=== PATIENT | male | born 1990 | race Caucasian/White ===

== ENCOUNTER 2021-05-16 09:14 | Emergency (ER) | payer OTHER, SELFPAY ==
--- NOTE | ~2021-05-16 | XR_ITS ---
EXAMINATION: XR KNEE, LEFT CLINICAL INFORMATION: Left knee pain COMPARISON: None TECHNIQUE: Four views of the left knee. FINDINGS: The tricompartment joint space is maintained normal. No visible acute fracture, dislocation or subluxation seen. Two metallic babr are seen along the lateral proximal tibia. There is moderate suprapatellar joint effusion seen. No fracture or dislocation seen. XR/XR knee LT 4V IMPRESSION: Moderate suprapatellar joint effusion. No visible acute fracture, dislocation or subluxation.
[2021-05-16 09:25] VITALS: BP 180/102; PULSE 91; RESP 18; TEMP 36.8; O2SAT 97; BMI 46.7
--- NOTE | 2021-05-16 10:07 | ED_ITS ---
HPI - Extremity Injury (Lower) General Chief Complaint: Extremity Injury, Lower Stated Complaint: l leg inj Time Seen by Provider: 05/16/21 09:46 Source: patient Mode of arrival: ambulatory Limitations: no limitations History of Present Illness HPI Narrative: 31-year-old male here with complaints of left knee pain. Patient tells me that yesterday he was at a concert and was moshing when he stepped on uneven ground causing his left knee to twist any heard a popping sensation. He lowered himself to the ground. since then he has had continued pain and instability of the left knee. He tells me he had a prior surgery to his left tibia with an implant but he does not know the details about the surgery. Related Data Previous Rx's Medication Instructions Recorded naproxen 500 mg tablet 500 mg PO BID PRN #15 tab 05/16/21 Allergies Allergy/AdvReac Type Severity Reaction Status Date / Time No Known Allergies Allergy Verified 05/16/21 09:48 Review of Systems Review of Systems: Yes all other systems are reviewed and are negative Constitutional: Constitutional: Reports no additional constitutional complaints, Denies body ache(s), Denies chills, Denies fever(s), Denies headac he(s) and Denies weakness Eyes: Eyes: Reports no additional eye complaints and Denies change in vision ENT: Reports system reviewed and no additional complaints, except as documented, Denies dizziness, Denies headache(s), Denies nasal congestion, Denies nasal discharge and Denies neck pain Cardiovascular: Cardiovascular: Reports no additional cardiovascular complaints, Denies chest pain, Denies leg edema and Denies dyspnea Respiratory: Respiratory: Reports no additional respiratory complaints, Denies cough and Denies dyspnea Gastrointestinal: Gastrointestinal: Reports no additional gastrointestinal complaints, Denies abdominal pain, Denies diarrhea, Denies nausea and Denies vomiting Genitourinary: Genitourinary: Denies urinary incontinence Musculoskeletal: Musculoskeletal: Reports no additional musculoskeletal complaints, Denies back pain, Reports arthralgias, Reports joint swelling, Reports limited range of motion, Denies neck pain, Denies numbness and Denies tingling Integumentary/Breasts: Skin/Breast: Reports system reviewed and no additional complaints, except as docu and Denies rash Neurologic: Reports system reviewed and no additional complaints, except as documented, Denies Abnormal speech present, Denies dizziness, Denies headache(s), Denies numbness, Denies tingling and Denies weakness [facility] Past Medical History Attestation statement: The following information was validated with the patient. Source: old records reviewed and nursing notes reviewed Surgical History H/O: knee surgery Social History Social History Advance Directives: No Advance Directives Information Provided: No Physical Exam Vital Signs: Vital Signs: Last Vital Signs Temp 98.2 F 05/16/21 09:25 Pulse 91 05/16/21 09:25 Resp 18 05/16/21 09:25 BP 180/102 H 05/16/21 09:25 Pulse Ox 97 05/16/21 09:25 Body Mass Index 46.7 Const: General: cooperative, healthy appearing, comfortable and no acute distress Orientation/consciousness: patient oriented x3 Limitations: no limitations HENMT: Head: Yes normal to inspection Ears: hearing grossly normal bilaterally and TM's normal bilaterally General nose exam: Normal external nose present Face and sinus: Yes normal facial exam Mouth: Normal oral and palatal mucosa present Throat: Yes posterior oropharynx normal Eyes: General: appearance normal, both eyes and all related structures Pupils: Equal, round and reactive pupils present Neck: Neck: Yes normal visual inspection Chest: Chest palpation & inspection: normal inspection of the chest Resp: Effort & Inspection: normal respiratory effort Auscultation: clear to auscultation bilaterally Cardio: Rate: regular rate Rhythm: regular rhythm Peripheral pulses: Per ipheral pulses 2+ throughout GI: Inspection: Yes normal to inspection Palpation (GI): Soft to palpation and nontender Auscultation: normal bowel sounds Back/Spine/Pelvis: Thoracic/Lumbar Spine: thoracic and lumbar spine normal to inspection Skin: General skin exam: no rashes or lesions noted Neuro: General: patient oriented x3, no focal motor deficits and normal sensation to monofilament Cranial nerves: Yes Equal, round and reactive pupils present Cognition (Neuro): normal cognition Speech: No Abnormal speech present Gait exam (Neuro): Normal gait present Motor exam (neuro): 5/5 motor strength present throughout Extrem: Other: To the left knee there is tenderness over the anterior knee. The patient is able to flex and extend the knee although does have some pain with doing so. Unable to appreciate ligamental laxity as the patient has exam tenderness. No posterior knee pain. There is mild swelling. General: Yes normal to inspection, Yes no pedal edema and Yes no calf tenderness Course Course Course Narrative: Left knee pain after an injury last evening. Will check imaging and provide analgesia and reassess 1115- X-ray shows a moderate joint effusion. Consider ligamental sprain. Patiently placed in Vital[employer] wrapping crutches for ambulation with nonweightbearing for the next week. We discussed that he should follow-up with Orthopedics in 1 week for persistent pain. We reviewed rice. reviewed worrisome signs and symptoms of when to return to the emergency department. Comfortable discharge home. MDM - Extremity Injury (Lower) Medical Records Attestation: I reviewed the patient's medical records. Lab Data Attestation: I reviewed the patient's lab results. Imaging Data left knee x-ray: Attestation: I personally reviewed and interpreted this imaging study as hai nevarez: Radiologist's impression: FINDINGS: The tricompartment joint space is maintained normal. No visible acute fracture, dislocation or subluxation seen. Two metallic barb are seen along the lateral proximal tibia. There is moderate suprapatellar joint effusion seen. No fracture or dislocation seen. XR/XR knee LT 4V IMPRESSION: Moderate suprapatellar joint effusion. No visible acute fracture, dislocation or subluxation. ? Procedures Procedure Narrative Procedure Narrative: crutches, vitaliy wrap Discharge Plan Discharge Clinical Impression: Left knee sprain Patient Disposition: Home, Self-Care Instructions: Knee Sprain (ED), Crutch Instructions (ED), How to Use an Elastic Bandage (ED) Additional Instructions: x-ray show no bony abnormality heat or ice to the area gentle stretching nonweightbearing until able to bear weight without experiencing pain if no improvement after 7 days then follow-up with Orthopedics Prescriptions: New naproxen 500 mg tablet 500 mg PO BID PRN (Reason: pain) Qty: 15 RF: 0 Referrals: Joe Cali MD [Physician] - 1 week (if no better ) Physician,None [Primary Care Provider] - 2 days
[2021-05-16] MEDS: Ketorolac Tromethamine 60 MG/2 ML VIAL IM (10:24)
== END 2021-05-16 11:30 | disposition home or self-care (01) ==
PROVIDERS: Emergency Provider Emergency Medicine
DX: S83.92XA Sprain of unspecified site of left knee, initial encounter (principal); X50.1XXA Overexertion from prolonged static or awkward postures, initial encounter; Y93.89 Activity, other specified; Y92.252 Music hall as the place of occurrence of the external cause; Y99.8 Other external cause status
CPT/HCPCS: 73564; 96372; 99283; 99284; J1885